=== PATIENT | male | born 1945 | race Caucasian/White ===

== ENCOUNTER 2018-05-07 11:10 | Inpatient (IN) | payer OTHER ==
[2018-05-07] VITALS (38 sets, daily range): BP systolic 87–138; BP diastolic 42–68
[~2018-05-07] VITALS: Ht 180.3 cm; Wt 70.5 kg
[2018-05-07 11:27] LABS: URINE BLOOD 3+ (Negative); URINE CLARITY CLOUDY; URINE COLOR YELLOW; URINE GLUCOSE-RANDOM* NEGATIVE (Negative); URINE KETONES TRACE (Negative); URINE LEUKOCYTES-REFLEX 2+ (Negative); URINE NITRITE-REFLEX POSITIVE (Negative); URINE PROTEIN (DIPSTICK) 2+ (Negative); URINE SPECIFIC GRAVITY 1.025 (1.005-1.035); URINE UROBILINOGEN 0.2 E.U./dl (0.2-1.0)
[2018-05-07 11:28] LABS: ICTOTEST (BILI CONFIRMATORY) Negative (Negative); URINE BILIRUBIN NEGATIVE (Negative)
[2018-05-07 11:28] LABS: ABSOLUTE NEUTROPHILS 4.9 thou/uL (1.4-8.2); BASOPHILS 0.3 % (0.0-2.0); EOSINOPHILS 0.8 % (0.0-3.0); HEMOGLOBIN 8.9 gm/dL (14.0-18.0); LYMPHOCYTES 24.4 % (24.0-44.0); MCHC 31.8 g/dL (28.0-37.0); MCV 91.1 fL (80.0-100.0); MONOCYTES 9.1 % (1.0-8.0); POLYS 65.4 % (36.0-66.0); RBC 3.08 mil/uL (4.50-6.00); RDW 22.2 % (10.5-14.5); WBC 7.5 thou/uL (4.0-11.0)
[2018-05-07 11:35] LABS: CALCIUM 7.8 mg/dL (8.5-10.1); CREATININE 2.2 mg/dL (0.7-1.3)
[2018-05-07] MEDS ORDERED: NOVOLOG100 UNIT/1 SUBQ (11:37)
[2018-05-07] MEDS ORDERED: TYLENOL325 MG PO (11:38)
[2018-05-07 11:39] LABS: INR 1.1; PROTIME 11.6 Seconds (9.3-11.4)
[2018-05-07] MEDS ORDERED: ALLOPURINOL 10100 M1 PO (11:39)
[2018-05-07] MEDS ORDERED: ASPIRIN81 M2 PO (11:42)
[2018-05-07] MEDS ORDERED: PLAVIX 75 MG TA75 M1 PO (11:42)
[2018-05-07] MEDS ORDERED: SENNA-DOCUSATE1 EAC1 PO (11:43)
[2018-05-07 11:44] LABS: POTASSIUM 2.9 mmol/L (3.5-5.1)
[2018-05-07 11:44] LABS: CASTS None Seen /LPF (None Seen); SQUAMOUS 0-3 Few /LPF (0-3); URINE RBC >20 Many /HPF (0-2); URINE WBC-REFLEX >25 Many /HPF (0-5); YEAST-REFLEX Present (None Seen)
[2018-05-07 11:45] LABS: ALBUMIN 1.8 g/dL (3.4-5.0); MAGNESIUM 1.6 mg/dL (1.8-2.4); TOTAL BILIRUBIN 0.4 mg/dL (<0.1-1.0); TOTAL PROTEIN 5.3 g/dL (6.4-8.2)
[2018-05-07 11:45] LABS: CRYSTALS None Seen /LPF (None Seen)
[2018-05-07] MEDS ORDERED: EPOGEN10000 UNIT SUBQ (11:45)
[2018-05-07] MEDS ORDERED: FOLIC ACID 1 MG1 MG PO (11:46)
[2018-05-07] MEDS ORDERED: HEPARIN 1,1000 UNIT/ SUBQ (11:46)
[2018-05-07 11:47] LABS: TROPONIN-I 5.06 ng/mL (<0.06)
[2018-05-07] MEDS ORDERED: LISINOPRIL5 MG PO (11:47)
[2018-05-07 11:48] LABS: APTT 41.1 Seconds (24.5-32.8)
[2018-05-07] MEDS ORDERED: MELATONIN3 MG PO (11:48)
[2018-05-07] MEDS ORDERED: REMERON15 MG PO (11:48)
[2018-05-07] MEDS ORDERED: RENAL CAPS SOFTG1 MG PO (11:49)
--- NOTE | 2018-05-07 11:49 | NUR ---
rt attempt for abg without sucess will call another rt to get abg
[2018-05-07] MEDS ORDERED: OXYCODONE HCL 55 MG PO (11:51)
[2018-05-07] MEDS ORDERED: ZANTAC 150MG T150 M1 PO (11:52)
[2018-05-07] MEDS ORDERED: PREDNISONE 5 MG5 M1 PO (11:52)
[2018-05-07] MEDS ORDERED: SODIUM BICARBO650 M3 PO (11:53)
[2018-05-07] MEDS ORDERED: TRAZODONE HCL100 MG PO (11:53)
[2018-05-07] MEDS ORDERED: TACROLIMUS0.5 MG PO (11:54)
--- NOTE | 2018-05-07 11:54 | NUR ---
RT HERE TO ATTEMPT ABG DRAW
[2018-05-07] MEDS ORDERED: LIDOCAINE PAIN1 EACH TOP (11:56)
[2018-05-07] MEDS ORDERED: CILOSTAZOL 100100 M1 PO (11:56)
[2018-05-07] MEDS ORDERED: PRAVACHOL40 MG PO (11:57)
[2018-05-07] MEDS ORDERED: LYRICA 50 MG50 MG PO (11:58)
--- NOTE | 2018-05-07 11:59 | NUR ---
RT WAS UNABLE TO GET ABG PROVIDER MADE AWARE
[2018-05-07] MEDS ORDERED: FLAGYL500 M1 PO (12:00)
[2018-05-07] MEDS ORDERED: SSD CREAM 1% 5050 GM TOP (12:03)
[2018-05-07] MEDS ORDERED: BETADINE30 ML TOP (12:05)
[2018-05-07 12:06] LABS: ANISOCYTOSIS 2+; PLATELET COUNT 218 thou/uL (150-400); PLATELET ESTIMATE NORMAL
[2018-05-07 12:07] LABS: OVALOCYTES 1+
[2018-05-07 16:45] LABS: BE(vivo) 0.1 mmol/L (-2 to +3); HCO3 24.8 mmol/L (22.0-26.0); PCO2 40.4 mmHg (35.0-45.0); PO2 75.2 mmHg (80.0-100.0); pH 7.406 (7.360-7.450); sO2 95.2 % (92.0-98.0)
[2018-05-07 17:36] LABS: POTASSIUM 3.3 mmol/L (3.5-5.1)
--- NOTE | 2018-05-07 17:58 | NUR ---
ADMITTED TO ICU FROM E.D. ON LEVO FOR BP SUPPORT. LOW GRADE FEVER NOTED. OTHER VITALS STABLE. HAS DENIED PAIN AND HAS BEEN DROWSY. ORIENTED TO PERSON AND PLACE. HARD OF HEARING, STATES HEARING AIDES LEFT WITH SPPOUSE. CONSULTS CALLED. ASSESSMENT AND HISTORY DOCUMENTED.
--- NOTE | 2018-05-07 23:30 | EKG ---
[place] [address] [facility] [place] [address] ELECTROCARDIOGRAM REPORT Name: HANNAH MCGARRY JR Room #: 244-P ADM IN M.R.#: [id number] Admission: 05/07/18 Attend Phys: Nash Paula MD Discharge: Date of : 47 Report #: [id number] THIS REPORT FOR: //name// [facility] ED Test Date: 2018-05-07 Test Time: 11:14:28 Pat Name: HANNAH MCGARRY Department: Room: 244 Gender: M Groundskeeper: WG : 1945 Requested By: Bhavik Pina Order Number: [id number] MD: Omid Manuel Measurements Intervals [place] Rate: 139 P: CO: QRS: 16 QRSD: 99 T: -88 QT: 295 QTc: 449 Interpretive Statements Atrial fibrillation Paired ventricular premature complexes Aberrant complex Repolarization abnormality, prob rate related Compared to ECG 10/25/2008 09:27:15 Ventricular premature complex(es) now present Aberrant conduction of supraventricular beat(s) now present Sinus bradycardia no longer present Poor R-wave progression no longer present ST (T wave) deviation no longer present Electronically Signed On 05-07-2018 23:30:12 LONG TERM by Omid Manuel [email or web address] <ELECTRONICALLY SIGNED> By: Omid Manuel MD 05/07/18 2330 1114 1114 Omid Manuel MD /EPI
--- NOTE | 2018-05-07 23:38 | EKG ---
[address] [place] [address] ELECTROCARDIOGRAM REPORT Name: HANNAH MCGARRY JR Room #: 244-P ADM IN M.R.#: [id number] Admission: 05/07/18 Attend Phys: Nash Paula MD Discharge: Date of : 47 Report #: [id number] THIS REPORT FOR: //name// [facility] Test Date: 2018-05-07 Test Time: 21:45:58 Pat Name: HANNAH MCGARRY Department: Room: 244 P Gender: M Rn Licensed Practical: BS : 1945 Requested By: Thaddeus Liang Order Number: [id number] MD: Omid Manuel Measurements Intervals [place] Rate: 97 P: 51 [place]: 161 QRS: 43 QRSD: 72 T: 112 QT: 393 QTc: 500 Interpretive Statements Sinus rhythm Nonspecific T abnormalities, lateral leads Borderline prolonged QT interval Compared to ECG 10/25/2008 09:27:15 T-wave abnormality now present Sinus bradycardia no longer present Poor R-wave progression no longer present ST (T wave) deviation no longer present Electronically Signed On 05-07-2018 23:38:08 DIRECT SUPPORT PROFESSIONAL by Omid Manuel [email or web address] <ELECTRONICALLY SIGNED> By: Omid Manuel MD 05/07/18 2338 2145 2145 Omid Manuel MD /EPI
[2018-05-08] VITALS (82 sets, daily range): BP systolic 78–139; BP diastolic 34–91
--- NOTE | 2018-05-08 02:30 | NUR ---
ASSUMED CARE OF PATIENT AROUND 1900. PATIENT DROWSY, ABLE TO WAKE UP AND ANSWER SOME QUESTIONS, FALLS BACK ASLEEP EASILY. PATIENT C/O PAIN IN R LEG AND L STUMP, OXYCODONE ADMINISTERED. PATIENT ABLE TO SLEEP THROUGH MOST OF NIGHT. WOUNDS NOTED AND REVIED WITH DR. MEDEL. SEE WOUND PHOTOS IN PROGRESS NOTES. ORDERS NOTED AND IMPLEMENTED. LEVO TITRATED TO KEEP MAP >65. ATTEMPTED TO TITRATE LEVO OFF SLOWLY, PRESSURE DECREASED TO 80s, LEVO INCREASED TO 16. ATTEMPTING TO TITRATE DOWN AGAIN. IJ SITE OOZING, STERILE DRESSING CHANGED X2 SO FAR. ATTEMPTED SOFT PRESSURE TO STOP OOZING. PATIENT IS PROGRESSING TOWARD GOALS, WILL CONTINUE TO MONITOR.
[2018-05-08 05:52] LABS: HEMOGLOBIN 8.4 gm/dL (14.0-18.0); MCH 28.3 pg (26.0-34.0); MCV 91.4 fL (80.0-100.0); RBC 2.95 mil/uL (4.50-6.00); RDW 22.5 % (10.5-14.5); WBC 5.7 thou/uL (4.0-11.0)
[2018-05-08 06:15] LABS: CALCIUM 7.1 mg/dL (8.5-10.1); CREATININE 2.5 mg/dL (0.7-1.3); MAGNESIUM 1.9 mg/dL (1.8-2.4); POTASSIUM 3.7 mmol/L (3.5-5.1)
[2018-05-08 06:18] LABS: TROPONIN-I 5.72 ng/mL (<0.06)
--- NOTE | 2018-05-08 08:02 | EKG ---
[address] [address] ELECTROCARDIOGRAM REPORT Name: HANNAH MCGARRY JR Room #: 244-P ADM IN M.R.#: [id number] Admission: 05/07/18 Attend Phys: Nash Paula MD Discharge: Date of : 47 Report #: [id number] THIS REPORT FOR: //name// [facility] Test Date: 2018-05-08 Test Time: 06:12:20 Pat Name: HANNAH MCBRIDEMALCOLM Department: Room: 244 P Gender: M Hand Striper: SHIRLEY : 1945 Requested By: Marta Funes Order Number: [id number] MD: Omid Manuel Measurements Intervals [place] Rate: 93 P: 40 ME: 168 QRS: 50 QRSD: 73 T: 116 QT: 424 QTc: 528 Interpretive Statements Sinus rhythm Low voltage, precordial leads Probable anteroseptal infarct, old Nonspecific T abnormalities, lateral leads Prolonged QT interval Compared to ECG 05/07/2018 21:45:58 Low QRS voltage now present Myocardial infarct finding now present T-wave abnormality still present Electronically Signed On 05-08-2018 8:02:35 RN LACTATION CONSULTANT by Omid Manuel [email or web address] <ELECTRONICALLY SIGNED> By: Omid Manuel MD 05/08/18801 1 1 Omid Manuel MD /EPI
--- NOTE | 2018-05-08 11:22 | HC ---
[facility] [place] [address] CONSULTATION Name: HANNAH MCGARRY JR Room #: 244-P ADM IN M.R.#: [id number] Admission: 05/07/18 Attend Phys: Nash Paula MD Discharge: Date of : 47 Report #: [id number] THIS REPORT FOR: //name// CC: FAM unknown Nash Paula DATE OF SERVICE: 05/07/2018 REASON FOR CONSULTATION: Evaluate septic shock. HISTORY OF PRESENT ILLNESS: The patient was a 72-year-old who presents with fever and cough. The patient was fairly lethargic and a poor historian. Most of his history was gleaned from discussion with nursing staff as well as review of his transfer records and current hospital records. He has underlying history of coronary artery disease, peripheral vascular disease and diabetes. He has end-stage renal disease. He failed renal transplant, still on tacrolimus and prednisone immunosuppression. He has significant peripheral vascular disease with nonhealing wounds involving his left hand, right foot and previously underwent left BKA at the [facility] for gangrene of his toe. Further complications after his surgery, which appears to be within the last month, he developed C. difficile colitis, treated with antibiotic therapy and now on metronidazole. The patient reports no diarrhea. No nausea or vomiting. He has had nonproductive cough. No headache. No chest pain. When he presented to the Emergency Room, he had a fever of 101 degrees and was in atrial fibrillation with rapid ventricular response and hypotensive with blood pressure in the 70s systolic. He has an indwelling Aguilar catheter that he came with. REVIEW OF SYSTEMS: A 10 point review of systems is otherwise negative. ALLERGIES: CODEINE, ATORVASTATIN, GABAPENTIN AND SIMVASTATIN. MEDICATIONS: As noted on his MAR including metronidazole, tacrolimus and 5 mg of prednisone a day. He was given vancomycin, Zosyn and micafungin in the Emergency Room. He is also on Levophed drip. PAST MEDICAL HISTORY: Diabetes, hypertension, ischemic heart disease, coronary artery bypass grafting, end-stage renal disease, gout, osteomyelitis of his left foot, status post BKA, peripheral vascular disease, right chest tunneled dialysis catheter placement and failed renal transplant. FAMILY HISTORY: Noncontributory. SOCIAL HISTORY: Nonsmoker and no significant alcohol intake. REVIEW OF SYSTEMS: As noted above. [address] [address] CONSULTATION Name: HANNAH MCGARRY Room #: 244-P [facility] IN .R.#: [id number] Admission: 05/07/18 Attend Phys: Nash Paula MD Discharge: Date of : 47 Report #: [id number] PHYSICAL EXAMINATION: VITAL SIGNS: Currently afebrile, pulse 91, blood pressure 112/55 on 6 mcg of Levophed. He was on 3 liters of oxygen per nasal cannula. GENERAL: He was awake although weak and unable to give a good history. EYES: Nonicteric. MOUTH: Without mucositis. NECK: Supple with no thyromegaly or mass. He has a left IJ catheter in place with oozing from the exit site. Right chest tunneled dialysis catheter exit site was unremarkable. Tunnel was nontender. SKIN: With multiple eschars to his distal digits including left second finger and left fifth distal finger along with right foot involving his heel and medial distal foot and first toe. No other rashes or decubiti. No palpable adenopathy. LUNGS: He had frequent nonproductive cough during my evaluation. Lungs had crackles in the bases bilaterally. No consolidation. HEART: Regular, without murmur, gallop or rub. ABDOMEN: Soft and nontender. He did have several areas of ecchymosis from his previous anticoagulation injections. GENITALIA: External genitalia unremarkable with no mass or lesion with indwelling Aguilar catheter. 1+ peripheral edema. RECTAL: Not performed. NEUROLOGIC: Cranial nerves intact. EXTREMITIES: He was able to move his upper and lower extremities. His left BKA had eschar at the incision site with no purulent drainage. He also has a shallow ulcer over the left knee. LABORATORY STUDIES: Troponin 10.3. ABG on 4 liters showed a pO2 of 75, pCO2 of 40, pH 7.4. Lactate 0.9 and ____. Influenza antigen is negative. Procalcitonin 1. Hemoglobin 8.9. WBC 7.5 and platelet count 218,000. Differential is unremarkable. BNP 27,600. INR 1.1. Sodium 136, potassium 2.9, bicarbonate 29, creatinine 2.2. Bilirubin 0.3, alkaline phosphatase 445 and ALT 17. Urinalysis, pyuria and bacteriuria. Chest x-ray, edema with left basilar consolidation and left effusion. Electrocardiogram showed atrial fibrillation with aVR complex. Blood cultures and urine culture are pending. IMPRESSION: Shock along with fever, suspecting infectious etiology, but with ischemic changes, cannot yet rule out cardiac component to his hypoperfusion. Source of infection would include central venous catheter versus pneumonia versus urinary tract infection. The patient is immunosuppressed on medications for his failed renal transplant. Although he has a history of C. difficile colitis, we have not had any episode of diarrhea since hospitalization. He has extensive ischemic changes, but they all seem to be dry gangrene, doubt cause of this presentation. Given the comorbidities including his cardiac injury with troponin up to 10, respiratory compromise recent surgery, end-stage renal disease and immunosuppression for renal transplant increases his mortality risk. [facility] [address] [place] [address] CONSULTATION Name: HANNAH MCGARRY JR Room #: 244-P ADM IN M.R.#: [id number] Admission: 05/07/18 Attend Phys: Nash Paula MD Discharge: Date of : 47 Report #: [id number] RECOMMENDATIONS: I agree with ICU support with vasopressors as needed. I have discussed with Cardiovascular medicine who will do further evaluation of his ischemia. We will continue with broad antibiotic coverage. Follow serial chest x-ray. Screen for influenza. Obtain sputum sample if possible. I have discussed with nursing staff regarding approach to his care. <ELECTRONICALLY SIGNED> By: Bhavik Parkinson MD 05/08/18 1122 2143 0038 Bhavik Parkinson MD /nt
--- NOTE | 2018-05-08 12:36 | 2DMMODE ---
[facility] [address] [place] [address] 2 D/M-MODE ECHOCARDIOGRAM Name: HANNAH MCGARRY Room #: 244-P [facility] IN .R.#: [id number] Admission: 05/07/18 Attend Phys: Nash Paula, Discharge: Date of : 47 Date of Service: 05/08/18 1236 Report #: [id number] THIS REPORT FOR: //name// APPROVED REPORT Study performed: 05/08/2018 08:18:08 EXAM: Comprehensive 2D, Doppler, and color-flow Echocardiogram Patient Location: Bedside Room #: 244 Status: routine BSA: 1.89 HR: 90 bpm BP: 121/67 mmHg Rhythm: Atrial Fibrillation Other Information Study Quality: Good Risk Factors: Cardiac Risk Factors: HTN, Hyperlipidemia, DM Indications Congestive Heart Failure CAD CABG x4 (2000) ESRD 2D Dimensions IVSd: 12.14 (7-11mm) LVOT Diam: 21.00 (18-24mm) LVDd: 57.45 mm PWd: 10.72 (7-11mm) Ascending Ao: 32.56 (22-36mm) LVDs: 52.29 (25-40mm) Aortic Root: 29.78 mm LV Single Plane 4CH: 21.77 % LV Single Plane 2CH: 26.32 % Biplane EF: 21.8 % Volumes Left Atrial Volume (Systole) Single Plane 4CH: 85.37 mL Single Plane 2CH: 82.41 mL LA ESV Index: 47.00 mL/m2 Aortic Valve [facility] [address] [place] [address] 2 D/M-MODE ECHOCARDIOGRAM Name: HANNAH MCGARRY JR Room #: 244-P [facility] IN .R.#: [id number] Admission: 05/07/18 Attend Phys: Nash Paula, Discharge: Date of : 47 Date of Service: 05/08/18 1236 Report #: [id number] AoV Peak Guicho.: 1.55 m/s AO Peak Gr.: 9.63 mmHg LVOT Max P.93 mmHg LVOT Max V: 0.69 m/s INGE Vmax: 1.48 cm2 Mitral Valve E/A Ratio: 3.5 MV Decel. Time: 117.72 ms MV E Max Guicho.: 1.50 m/s MV A Guicho.: 0.43 m/s MV PHT: 34.14 ms IVRT: 51.90 ms TDI E/Lateral E': 21.43 E/Medial E': 25.00 Medial E' Guicho.: 0.06 m/s Lateral E' Guicho.: 0.07 m/s Pulmonary Valve PV Peak Guicho.: 0.92 m/s PV Peak Gr.: 3.37 mmHg KS End Vmax: 1.63 m/s Pulmonary Vein P Vein S: 0.30 m/s P Vein A: 0.13 m/s P Vein D: 0.55 m/s P Vein A Dur.: 83.0 msec P Vein S/D Ratio: 0.55 Tricuspid Valve TR Peak Guicho.: 2.82 m/s RAP Estimate: 14.00 mmHg TR Peak Gr.: 31.87 mmHg PA Pressure: 46.00 mmHg Left Ventricle Left ventricle is borderline dilated. Anterolateral akinesis. Mid-inferior and posterior severe hypokinesis. Septum is hypokinetic. Mild concentric left ventricular hypertrophy. Left ventricular systolic function is severely decreased. LVEF is 20-25%. Grade IV - fixed restrictive diastolic dysfunction. Right Ventricle Right ventricle is dilated. Right ventricular systolic function is severely reduced. Atria Left atrium is moderately dilated. Right atrium is dilated. [facility] [address] [place] [address] 2 D/M-MODE ECHOCARDIOGRAM Name: HANNAH MCGARRY Room #: 244-P [facility] IN ..#: [id number] Admission: 05/07/18 Attend Phys: Nash Paula, Discharge: Date of : 47 Date of Service: 05/08/18 1236 Report #: [id number] Aortic Valve The Aortic valve is sclerotic. Trace aortic regurgitation. Mitral Valve There is mitral annular calcification. Moderate to severe mitral regurgitation. Tricuspid Valve Moderate to severe tricuspid regurgitation. Pulmonary artery pressure is 46 mmHg. Pulmonic Valve Mild pulmonic regurgitation. Great Vessels IVC is dilated and collapses <50% with inspiration. Pericardium no effusion A pleural effusion is present. <Conclusion> Left ventricle is borderline dilated. Anterolateral akinesis. Mid-inferior and posterior severe hypokinesis. Septum is hypokinetic. Mild concentric left ventricular hypertrophy. LVEF is 20-25%. Grade IV - fixed restrictive diastolic dysfunction. Right ventricle is dilated. Right ventricular systolic function is severely reduced. Left atrium is moderately dilated. Right atrium is dilated. The Aortic valve is sclerotic. Trace aortic regurgitation. There is mitral annular calcification. Moderate to severe mitral regurgitation. Moderate to severe tricuspid regurgitation. Pulmonary artery pressure is 46 mmHg. no effusion A pleural effusion is present. <ELECTRONICALLY SIGNED> By: Thaddeus Liang MD, FACC 05/08/18 1236 1236 1236 Thaddeus Liang MD, FACC /INF
--- NOTE | 2018-05-08 15:14 | NUR ---
WOUND CONSULT: DR. EUCEDA AND MYSELF ATTEMPTED TO SEE PT. TODAY. PT. WAS GONE TO PUBLIC SERVICE DIRECTOR. SPOKE TO DR. NICHOLSON AND STAFF NURSE REGARDING WOUNDS. RECOMMENDATIONS WERE BASED ON THIS. WILL ATTEMPTED TO SEE PT. AGAIN AT LATER DATE.
--- NOTE | 2018-05-08 15:54 | NUR ---
Patient at cardiac cath lab radiology technologist for multiple proceedures. Will continue to monitor after returns. Vital signs and assessments as documented.
[2018-05-08 17:21] LABS: BE(vivo) -1.8 mmol/L (-2 to +3); HCO3 22.2 mmol/L (22.0-26.0); PCO2 34.9 mmHg (35.0-45.0); PO2 148.8 mmHg (80.0-100.0); pH 7.422 (7.360-7.450)
--- NOTE | 2018-05-08 17:32 | NUR ---
Patient left the unit at 1345 to proceedure room. Will stated return time.
--- NOTE | 2018-05-08 19:45 | NUR ---
Patient returned from labor arbitrator hearing office. Vital signs as documented. Left groin site soft without hematoma, no bleeding noted.
[2018-05-09] VITALS (31 sets, daily range): BP systolic 96–150; BP diastolic 48–85
[2018-05-09 05:40] LABS: HEMATOCRIT 26.6 % (42.0-52.0); HEMOGLOBIN 8.4 gm/dL (14.0-18.0); MCH 28.9 pg (26.0-34.0); MCHC 31.6 g/dL (28.0-37.0); MCV 91.4 fL (80.0-100.0); RBC 2.91 mil/uL (4.50-6.00); RDW 22.1 % (10.5-14.5); WBC 6.7 thou/uL (4.0-11.0)
[2018-05-09 05:52] LABS: CALCIUM 7.3 mg/dL (8.5-10.1); CREATININE 1.9 mg/dL (0.7-1.3); MAGNESIUM 1.9 mg/dL (1.8-2.4); POTASSIUM 3.2 mmol/L (3.5-5.1)
--- NOTE | 2018-05-09 07:51 | NUR ---
ASSUMED CARE OF PT AT 1900. PT HAD RECENTLY RETURNED FROM CATH, IN WHICH THEY PLACED THREE STENTS. LEFT GROIN SITE DRESSING INTACT WITH SOME SEROSANGUINOUS DRAINAGE, NO HEMATOMA. RIGHT PEDAL PULSE PAPABLE, BUT WEAK. LEFT POPLITEAL PULSE PAPABLE. LEVO GTT OFF THE ENTIRE NIGHT. ASSESSMENTS AND VITALS DOCUMENTED. WILL CONTINUE TO MONITOR.
--- NOTE | 2018-05-09 17:27 | NUR ---
RECEIVED FROM ICU. VSS REMAINS NSR WITH PVC'S, BP 101-110/50'S, LUNGS DIMINISHED O2 SAT 2K IS 91%, LEONARD INTACT DRAINING QS. LBKA, PRAFO BOOT ON R LEG, NO C/O PAIN ON CCU. WILL CONTINUE TO MONITER AND CARE FOR PT PER PLAN OF CARE
--- NOTE | 2018-05-09 17:36 | NUR ---
RECEIVED FROM ICU TOAY. VSS REMAINS NSR WITH PVC'S. BP 100-110/60, LUNGS DIMINISHED AND CLEAR, O2 SAT 2L IS 91%, LEONARD INTACT, NO UO THIS SHIFT. NO C/O PAIN ON CCU FROM R FOOT, PROFO BOOT INTACT..[place] WOUND DOCUMENTTION FOR WOUND CARE. WILL CONTINUE TO MONITER AND CARE FOR PT PER PLAN OF CARE
--- NOTE | 2018-05-09 19:50 | NUR ---
PT AND AND ORIENTED X2-3 THIS AM. VSS. ORDER TO TRANSFER TO CCU. REPORT CALLED TO [facility], ISMAEL. PT'S FAMILY INFORMED OF TRANSFER.
[2018-05-10 04:54] LABS: HEMATOCRIT 25.5 % (42.0-52.0); HEMOGLOBIN 8.2 gm/dL (14.0-18.0); MCHC 32.1 g/dL (28.0-37.0); MCV 90.3 fL (80.0-100.0); RBC 2.82 mil/uL (4.50-6.00); RDW 21.6 % (10.5-14.5); WBC 5.8 thou/uL (4.0-11.0)
[2018-05-10 05:04] LABS: CALCIUM 7.3 mg/dL (8.5-10.1); CREATININE 2.8 mg/dL (0.7-1.3); MAGNESIUM 1.9 mg/dL (1.8-2.4)
[2018-05-10 05:08] LABS: POTASSIUM 2.9 mmol/L (3.5-5.1)
[2018-05-10 05:27] VITALS: BP 121/53
--- NOTE | 2018-05-10 08:01 | NUR ---
ASSUMED PT CARE AT 1900. VSS. PT A&OX4. ASSESSMENTS AND MEDS GIVEN ARE DOCUMENTED, PT HAD 3 SOFT BMs DURING THIS SHIFT. L GROIN SITE HAD SOME FLUID OOZING OUT OF IT, SO PRESSURE DRESSING WAS APPLIED. DRESSING CHANGE TO SACRAL WOUND DONE. PT HAD A CRITICAL POTASSIUM OF 2.9 THIS AM, POTASSIUM WAS REPLACED, TO BE REDRAWN AT 1000AM. PT RESTED WELL ALL NIGHT. NO COMPLAINTS OF DISTRESS. WILL CONTINUE TO MONITOR PER POC.
[2018-05-10 08:10] VITALS: BP 100/53
[2018-05-10 11:57] VITALS: BP 114/61
--- NOTE | 2018-05-10 12:40 | HC ---
[facility] [place] [address] [place] [address] CONSULTATION Name: HANNAH MCGARRY JR Room #: 214-P ADM IN M.R.#: [id number] Admission: 05/07/18 Attend Phys: Nash Paula MD Discharge: Date of : 47 Report #: [id number] THIS REPORT FOR: //name// CC: FAM unknown Nash Paula DATE OF SERVICE: 05/09/2018 REASON FOR CONSULTATION: Severe peripheral vascular disease of bilateral lower extremity, status post left below-knee amputation, gangrene of right toe with lower extremity revascularization yesterday, sacral pressure sore. HISTORY OF PRESENT ILLNESS: The patient with a history of end-stage renal disease with failed renal transplant, who was admitted through the Emergency Room at [facility] on 05/07/2018 with septic shock. The patient has been stabilized. The patient has a history of underlying coronary artery disease and severe peripheral vascular disease with diabetes mellitus type 2 in the setting of end-stage renal disease with failed renal transplant. He is still on tacrolimus and prednisone immunosuppression. The patient recently underwent left below-knee amputation for gangrene of the left foot. This was done at the [facility]. He has a healing below-knee amputation site. The patient also presented with rest pain of the right foot with dry gangrene of the toes. He, yesterday, underwent coronary artery stenting as well as lower extremity angiography by Dr. Connolly with placement of right and left common iliac artery stents with right peroneal artery atherectomy and angioplasty with secondary thrombectomy of the peroneal artery. The patient was noted to have weak pulse of the right foot and rest pain in the right lower extremity. Of note, during the patient's previous hospitalization, he was diagnosed with Clostridium difficile colitis. Wound care is consulted for gangrenous change of the right foot, healing below-knee amputation on the left and sacral pressure sore. ALLERGIES: CODEINE, ATORVASTATIN, GABAPENTIN, AND SIMVASTATIN. REVIEW OF SYSTEMS: Rest pain in the right foot. MEDICATIONS: See the MAR, includes vancomycin and Zosyn. PAST MEDICAL HISTORY: Diabetes mellitus type 2, hypertension, end-stage renal disease with failed renal transplant, ischemic coronary artery disease status post coronary bypass grafting, history of gangrene and osteomyelitis of left foot status post recent below-knee amputation, severe peripheral vascular disease of both lower extremities, history of failed renal transplant. FAMILY HISTORY: Noncontributory. [address] [address] CONSULTATION Name: HANNAH MCGARRY JR Room #: 214-P [facility] IN M.R.#: [id number] Admission: 05/07/18 Attend Phys: Nash Paula MD Discharge: Date of : 47 Report #: [id number] SOCIAL HISTORY: No significant tobacco or alcohol. PHYSICAL EXAMINATION: GENERAL: Shows a chronically ill-appearing gentleman who is alert, pleasant, conversant, and cooperative. HEENT: Mucous membranes are moist. ABDOMEN: Soft. EXTREMITIES: Shows a healing left below-knee amputation stump with intact nylon suture line. There is crusted eschar at the incision line with minimal wound separation. There is no cellulitis and no apparent drainage and flaps appear to be completely viable. Eschar over the suture line may conceal some minor skin separation, but stump appears generally stable. Examination of the right lower extremity shows a weak palpable dorsalis pedis pulse. There is a stable dry gangrene of the distal 1 cm of the great toe and distal 0.5 cm of the right second toe. There is a neuropathic unstageable dry black pressure ulcer of the right lateral heel, which is somewhat tender to the touch without cellulitis. Examination of the patient's back shows a small healing stage 3 pressure ulcer of the right sacrum measuring 1 x 1 cm and a small blistered area above this. IMPRESSION: 1. End-stage renal disease with failed renal transplant. 2. History of recent Clostridium difficile colitis. 3. Coronary artery disease, status post coronary bypass grafting and coronary stenting yesterday. 4. Severe peripheral vascular disease of lower extremities with gangrene of left foot, requiring recent below-knee amputation. 5. Healing left below-knee amputation stump with minor wound separation. 6. Rest pain and stable dry gangrene of the right first, second toe and heel with weak dorsalis pedis pulse. 7. Small sacral stage 3 pressure ulcer. PLAN: Total offloading with low-air loss mattress, sacral Mepilex to the small stage 3 sacrum. Betadine paint to the areas of dry gangrene of the right foot. Simple observation of the left below-knee amputation stump. Wound care team will follow. <ELECTRONICALLY SIGNED> By: Edgard Diaz MD 05/10/18 1240 0651 [id number] Edgard Diaz MD /nt
--- NOTE | 2018-05-10 14:38 | NUR ---
Pt WENT TO IR ON 05/08/18 FOR STENT PLACEMENTS AND SECONDARY THROMBECTOMY. WILL NEED NEW PT ORDERS ONCE Pt IS APPROPRIATE FOR THERAPY.
[2018-05-10 16:00] VITALS: BP 0113/56
[2018-05-10 19:05] VITALS: BP 126/66
--- NOTE | 2018-05-10 20:05 | NUR ---
ASSUMED PATIENT CARE THIS AM. PATIENT LYING IN BED, A&O. NC @ 2L. LEONARD CATHETER PATENT AND SECURE. PATIENT CALL LIGHT WITHIN REACH. FALL RISK. LEFT BKA ELEVATED ON PILLOW. NO COMPLAINTS STATED. TOLERATING DIET.
[2018-05-11 05:10] VITALS: BP 104/58
[2018-05-11 05:56] LABS: HEMATOCRIT 27.2 % (42.0-52.0); HEMOGLOBIN 8.6 gm/dL (14.0-18.0); MCH 28.9 pg (26.0-34.0); MCHC 31.7 g/dL (28.0-37.0); MCV 91.1 fL (80.0-100.0); RBC 2.99 mil/uL (4.50-6.00); RDW 21.8 % (10.5-14.5); WBC 5.7 thou/uL (4.0-11.0)
[2018-05-11 06:03] LABS: CALCIUM 7.2 mg/dL (8.5-10.1); CREATININE 3.6 mg/dL (0.7-1.3); MAGNESIUM 1.9 mg/dL (1.8-2.4); POTASSIUM 3.7 mmol/L (3.5-5.1)
--- NOTE | 2018-05-11 06:28 | NUR ---
ASSUMED PT CARE WITH NO SIGN OF DISTRESS NOTED, BEDSIDE REPORT COMPLETED. PT IS STABLE, BLOOD SUGAR CHECKED, BLOOD SUGAR CHECKED, SCHEDULED MED ADMINISTERED TO PT. PT IS NPO AFTER MIDNIGHT FOR A PROCEDURE. PT VERBALIZES UNDERSTANDING. NO NIGHT OF DISTRESS NOTED IN PT. DENIES ANY NEED. VITAL SIGNS STABLE.
[2018-05-11 07:21] VITALS: BP 96/52
--- NOTE | 2018-05-11 08:43 | NUR ---
PT UNDERWENT THROMBECTOMY; NEED NEW O.T. ORDERS IF APPROPRIATE DUE TO CHANGE IN STATUS.
[2018-05-11 13:08] LABS: HEMATOCRIT 24.5 % (42.0-52.0); HEMOGLOBIN 7.8 gm/dL (14.0-18.0); MCH 29.1 pg (26.0-34.0); MCV 90.8 fL (80.0-100.0); RBC 2.69 mil/uL (4.50-6.00); RDW 21.5 % (10.5-14.5); WBC 6.7 thou/uL (4.0-11.0)
[2018-05-11 13:26] LABS: APTT 38.4 Seconds (24.5-32.8); FIBRINOGEN 216.8 mg/dL (210-360); INR 1.2
[2018-05-11 15:15] LABS: HEMATOCRIT 21.7 % (42.0-52.0); HEMOGLOBIN 6.9 gm/dL (14.0-18.0); MCH 28.9 pg (26.0-34.0); MCHC 31.9 g/dL (28.0-37.0); MCV 90.6 fL (80.0-100.0); RBC 2.39 mil/uL (4.50-6.00); RDW 21.6 % (10.5-14.5)
[2018-05-11 15:31] LABS: APTT 38.3 Seconds (24.5-32.8); INR 1.2; PROTIME 12.7 Seconds (9.3-11.4)
--- NOTE | 2018-05-11 15:32 | HC ---
[facility] [place] [address] CONSULTATION Name: HANNAH MCGARRY JR Room #: 150-1 ADM IN M.R.#: [id number] Admission: 05/07/18 Attend Phys: Nash Paula MD Discharge: Date of : 47 Report #: [id number] THIS REPORT FOR: //name// CC: FAM unknown Nash Paula DATE OF SERVICE: 05/10/2018 We were asked to see the patient by Dr. Connolly, Dr. Liang and Dr. Leo. HISTORY OF PRESENT ILLNESS: The patient is a 72-year-old with lower extremity arterial occlusive disease. The patient was admitted on 05/07/2018 with a diagnosis of septic shock. The patient has a history of diabetes, hypertension, coronary artery disease with a history of CABG in the past and a recent left below knee amputation. The patient also has end-stage renal disease, on dialysis. The patient sought care for gangrenous toe at the [facility] in [place] and eventually had a avrcn-lmj-raac amputation at that institution. The patient states that his course was complicated by an infection of C. difficile. The patient was later discharged to care home facility and on the day of admission to this hospital started developing fevers. The patient has been treated for this since admission. We also note the patient has had diagnostic coronary and peripheral angiography with stent placement in the common iliacs bilaterally and in the right superficial femoral to open a total occlusion. Unfortunately, there was a high grade lesion in the right common femoral artery and I have been asked to deal with that surgically. MEDICAL PROBLEMS: Include anasarca, atrial fibrillation with rapid ventricular response, heart failure, elevated troponin, end-stage dialysis, hypoalbuminemia, hypokalemia, hypomagnesemia, hypotension, pneumonia, sepsis and urinary tract infection. ALLERGIES: CODEINE CAUSES RASH, ATORVASTATIN AND GABAPENTIN MAKE THE PATIENT SHAKY AND SIMVASTATIN. MEDICATIONS: Include insulin, acetaminophen, allopurinol, aspirin, Plavix, Epogen, folate, Lovenox, lisinopril, melatonin, Remeron, prednisone, ranitidine, sodium bicarbonate, trazodone, tacrolimus, lidocaine, cilostazol, pravastatin, pregabalin, Flagyl and topical sulfasalazine and Betadine. PAST MEDICAL HISTORY: Includes diabetes mellitus, hypertension, dialysis 3 days a week, left jepjp-mhh-svxc amputation recently, idiopathic gout, osteomyelitis, quadruple bypass in the past. FAMILY HISTORY: There is no history of peripheral or cardiac disease. SOCIAL HISTORY: Tobacco use, the patient [place] [address] CONSULTATION Name: HANNAH MCGARRY Room #: 150-1 ADM IN ..#: [id number] Admission: 05/07/18 Attend Phys: Nash Paula MD Discharge: Date of : 47 Report #: [id number] when he was in the service in [facility] in the mid 60s. REVIEW OF SYSTEMS: I have nothing to add to the review of systems done at admission other than the fact that there is a gangrenous toes of the right foot. PHYSICAL EXAMINATION: GENERAL: The patient is pleasant fellow. He is oriented and appropriate, appears chronically ill and somewhat sarcopenic. HEENT: No scleral icterus, no arcus, normocephalic. No obvious oral or nasal injection. NECK: No cervical mass or bruit. CHEST: Clear at the apex, shallow respirations. HEART: Irregular rhythm. No murmurs audible. ABDOMEN: Soft, no mass, no tenderness. NEUROLOGIC: No motor or sensory weakness. MUSCULOSKELETAL: We note the left evnli-ivj-jvdz amputation and the gangrenous toes of the right foot. PSYCHIATRIC: The patient answers questions appropriately and although somber, does not appear to be inordinately depressed. ASSESSMENT: It appears that the patient has had a good response to his treatment for infection. However, the right lower extremity progress will be limited by the significant lesion in the right common femoral artery. Although the patient is on Plavix, I think we can safely explore the groin and improve the blood flow with a right femoral endarterectomy. Risks and details of surgery were discussed with the patient. These include but are not limited to bleeding, infection, anesthesia risks, and of course failure of the operation. Options and alternatives were reviewed. The patient understands all of this and he wishes to proceed. I have tried to arrange surgery for tomorrow afternoon, 05/11/2018. Thank you for the consult. <ELECTRONICALLY SIGNED> By: Tin Meza MD 05/11/18 1532 [id number] [id number] Tin Meza MD /nt
[2018-05-11 17:10] LABS: BE(vivo) -4.9 mmol/L (-2 to +3); HCO3 19.3 mmol/L (22.0-26.0); PCO2 32.6 mmHg (35.0-45.0); PO2 143.2 mmHg (80.0-100.0); pH 7.391 (7.360-7.450); sO2 98.8 % (92.0-98.0)
[2018-05-11 17:44] LABS: HEMATOCRIT 26.7 % (42.0-52.0); HEMOGLOBIN 8.6 gm/dL (14.0-18.0)
--- NOTE | 2018-05-11 23:52 | NUR ---
ASSUMED CARE OF PT AT 1900. PT S/P FEMORAL ENDARTERECTOMY AND STARTED ON HD. PT HYPOTENSIVE ON HD LOW 70/30. LEVOPHED GTT TITRATED TO KEEP MAP > 60. DR STEWART CONTACTED AND ORDERS FOR ALBUMIN GIVEN. PT STABILIZED AND TOLERATED HD WITHOUT FLUID REMOVAL PER DR STEWART. DR STEWART AGAIN UPDATED WITH PATIENT STATUS AT 2019. BP IMPROVED DURING DIALYSIS AND ABLE TO TITRATE LEVO GTT DOWN. DR ZARCO ASSESSED PATIENT AT BEDSIDE AND WAS UNABLE TO DOPPLER PULSE ON RLE (POPLITEAL PULSE). NO ACTIVE BLEEDING NOTED ON R GROIN SITE DRESSING. LATISHA DRAIN IN PLACE WITH SMALL AMOUNT OF SANGUINEOUS DRAINAGE. WILL CONTINUE TO MONITOR PATIENT.
[2018-05-12 01:47] LABS: HEMATOCRIT 21.8 % (42.0-52.0); MCH 28.4 pg (26.0-34.0); MCV 88.6 fL (80.0-100.0); RBC 2.47 mil/uL (4.50-6.00); WBC 11.1 thou/uL (4.0-11.0)
[2018-05-12 06:13] LABS: CALCIUM 6.9 mg/dL (8.5-10.1); POTASSIUM 3.5 mmol/L (3.5-5.1)
[2018-05-12 06:19] LABS: CREATININE 2.1 mg/dL (0.7-1.3)
[2018-05-12 06:26] LABS: HEMOGLOBIN 7.4 gm/dL (14.0-18.0)
[2018-05-12 07:11] LABS: ADENOVIRUS Negative (Negative); INFLUENZA A Negative (Negative); INFLUENZA B Negative (Negative); PARAINFLUENZA 1 Negative (Negative); PARAINFLUENZA 2 Negative (Negative); PARAINFLUENZA 3 Negative (Negative); RHINOVIRUS Negative (Negative); RSV A Negative (Negative); RSV B Negative (Negative)
--- NOTE | 2018-05-12 10:26 | NUR ---
patient rec endarterectomy procedure yesterday, he has recent BKA and ESRD on dialysis. Patient admits from [facility] skilled unit. Per family has been there approx a week. [facility] . Patient has supportive and dtr at bedside. Casemgt following plan to cont to updated [facility] with planned return. Therapy evals to resume once stable.
--- NOTE | 2018-05-12 13:41 | NUR ---
PT. IS A RESIDENT AT [facility] FAXED CLINICAL UPDATE TO FACILITY AND SPOKE WITH YOLANDA IN ADM. AND SHE RECEIVED UPDATE. DCP TO FOLLOW.
[2018-05-12 13:54] LABS: HEMATOCRIT 20.3 % (42.0-52.0)
[2018-05-12 13:55] LABS: HEMOGLOBIN 6.7 gm/dL (14.0-18.0)
--- NOTE | 2018-05-12 14:21 | NUR ---
WOUND FOLLOW UP: PT. WAS SEEN TODAY BY DR. EUCEDA AND MYSELF. PT. WOUNDS ARE STABLE AT THIS TIME. RECOMMENDATIONS: CONTINUE WITH CURRENT PLAN OF CARE. PT. AND STAFF NURSE WERE INSTRUCTED ON PLAN OF CARE.
[2018-05-12 15:10] LABS: BE(vivo) 0.4 mmol/L (-2 to +3); HCO3 23.5 mmol/L (22.0-26.0); PCO2 31.3 mmHg (35.0-45.0); PO2 163.6 mmHg (80.0-100.0); pH 7.494 (7.360-7.450); sO2 99.2 % (92.0-98.0)
[2018-05-12 16:38] VITALS: BP 116/37; BP 116/42
--- NOTE | 2018-05-12 16:49 | O ---
[facility] [place] [address] OPERATIVE REPORT Name: CARYNHANNAH Denny Room #: 247-P ADM IN M.R.#: [id number] Admission: 05/07/18 Attend Phys: Nash Paula MD Discharge: Date of : 47 Report #: [id number] THIS REPORT FOR: //name// CC: FAM unknown Nash Paula DATE OF SERVICE: 05/11/2018 PREOPERATIVE DIAGNOSIS: Right femoral artery stenosis. POSTOPERATIVE DIAGNOSIS: Right femoral artery stenosis. OPERATION: Right femoral endarterectomy with patch graft. SURGEON: Tin Meza MD. ANESTHESIA: General. INDICATIONS: The patient is a 72-year-old with important lower extremity arterial occlusive disease. The patient had a left below the knee amputation at the [facility] several weeks ago. The patient was admitted to this institution with sepsis and also important right lower extremity arterial occlusive disease. The sepsis seems to have been controlled, but the patient had arteriography that shows a severe right common femoral stenosis, iliac stenoses and perineal stenoses were dealt within the catheterization lab by Dr. Connolly. We also note other problems including coronary artery disease with recent angioplasty and stent of old bypass grafts End-stage renal disease, on dialysis and diabetes mellitus. FINDINGS AND TECHNIQUE: After general anesthesia was established, an incision was made in the right groin to expose the common, deep and superficial femoral arteries. The patient had severe edema and once the skin incision was made, there was exuberant extra cellular fluid. ____ there was severe common femoral artery occlusive disease. We needed to expose quite high in the femoral artery up into the external iliac system to obtain proximal control. When the proximal, common femoral, deep femoral and superficial femoral arteries were sufficiently controlled, then, 10,000 units of heparin were given. The arteriotomy was made. The endarterectomy was performed. The endarterectomy extended into the profunda and superficial femoral arteries. Tacking sutures were placed at the transition zone. When the arteriotomy was felt to be satisfactory, the arteriotomy was closed with a patch graft of thin pericardium. Flow was then established. [facility] [address] [place] [address] OPERATIVE REPORT Name: HANNAH MCGARRY JR Room #: 247-P [facility] IN M.R.#: [id number] Admission: 05/07/18 Attend Phys: Nash Paula MD Discharge: Date of : 47 Report #: [id number] The patient was on multiple blood thinners including Plavix, and there was coagulopathic bleeding. Multiple sutures were placed to help control the bleeding spots and protamine, plasma, and platelets were given. When hemostasis was satisfactory, drain was brought through the bottom through a separate stab wound I should say and then the wound was closed in layers. A Prevena dressing was applied, and the patient was taken to the intensive care unit having tolerated the procedure reasonably well, considering his chronic and acutely ill status. All counts were reported as correct. <ELECTRONICALLY SIGNED> By: Tin Meza MD 05/12/18 1649 1548 1630 Tin Meza MD /nt
--- NOTE | 2018-05-12 19:57 | NUR ---
CPAP TRIAL THIS AFTERNOON. ABG'S CALLED TO DR NICHOLSON AND RECIEVED ORDER TO EXTUBATE. EXTUBATED AT 1535. H&H RESULTS CALLED TO DR NICHOLSON. ORDER FOR 2 UNITS PRBC'S. FIRST UNIT STARTED. NSR WITH FREQUENT PVC'S TODAY. TITRATING LEVOPHED TO KEEP MAP >60. PREVANA VAC TO RIGHT GROIN LEAKING THIS AM. REINFORCED WITH TRANSPARENT DRESSING AND SEAL ACHIEVED. PT'S AND DAUGHTERS AT BEDSIDE AND UPDATED THROUGHOUT THE DAY TODAY.
[2018-05-12 20:35] VITALS: BP 113/37; BP 115/41; BP 120/43
[2018-05-13 01:06] LABS: METAPNEUMOVIRUS Negative (Negative)
[2018-05-13 01:06] LABS: HEPATITIS B SURFACE AG Negative (Negative)
[2018-05-13 05:55] LABS: HEMATOCRIT 27.9 % (42.0-52.0)
[2018-05-13 06:05] LABS: HEMOGLOBIN 9.5 gm/dL (14.0-18.0)
--- NOTE | 2018-05-13 06:18 | NUR ---
PT AOX1, CONFUSED AND DROWSY AT TIMES. FOLLOWS COMMANDS. DENIES PAIN. AFEBRILE DURING THE NIGHT. ON 3L NC, SATS ABOVE 90%, NO SIGNS OF RESP DISTRESS NOTED WHILE IN BED. LEVOPHED WEANED OFF AT APPROXIMATELY 2300 DURING THE NIGHT, BP STABLE WITH MAP > 60. BLOOD GIVEN DURING THE NIGHT, HGB STABLE THIS AM. URINE OUTPUT NOTED. FREQUENT TURNS DURING THE NIGHT. WOUND CARE PERFORMED ON SACRAL WOUND. PREVANA DRESSING REINFORCED ON R GROIN. LATISHA DRAIN OUT NOTED. NO COMPLAINS CURRENTLY. FALL PRECAUTIONS IN PLACE, WILL CONTINUE TO MONITOR.
[2018-05-13 09:46] LABS: HEMATOCRIT 27.9 % (42.0-52.0); HEMOGLOBIN 9.5 gm/dL (14.0-18.0); MCH 29.7 pg (26.0-34.0); MCHC 34.1 g/dL (28.0-37.0); MCV 87.1 fL (80.0-100.0); RBC 3.2 mil/uL (4.50-6.00); RDW 18.3 % (10.5-14.5); WBC 7.8 thou/uL (4.0-11.0)
[2018-05-13 09:55] LABS: ALBUMIN 1.7 g/dL (3.4-5.0); CALCIUM 7.4 mg/dL (8.5-10.1); CREATININE 2.9 mg/dL (0.7-1.3); PHOSPHORUS 3.6 mg/dL (2.5-4.9); POTASSIUM 3.7 mmol/L (3.5-5.1)
--- NOTE | 2018-05-13 12:24 | NUR ---
WOUND FOLLOW UP: PT. WAS SEEN TODAY BY DR. RYAN AND MYSELF. DR. RYAN REMOVED THE SUTURES TO THE LEFT BKA SITE. ALL OTHER WOUNDS ARE STABLE AT THIS TIME. RECOMMENDATIONS: CONTINUE WITH CURRENT PLAN OF CARE. PT. AND STAFF NURSE WERE INSTRUCTED ON PLAN OF CARE.
--- NOTE | 2018-05-13 15:07 | PATH ---
[facility] [address] [place] [address] PATHOLOGY RPT PROCEDURE Name: HANNAH MCGARRY JR Room #: 247-P [facility] IN M.R.#: [id number] Admission: 05/07/18 Date of : 47 Discharge: Report #: [id number] Path Case #: [id number] [facility] Accession Number: [id number] . 01 Material submitted: . RIGHT FEMORAL PLAQUE . 01 Clinical history: . Arterial occlusive disease, PVD, right femoral artery . 02 Diagnosis: Right femoral artery plaque, femoral endarterectomy: - Consistent with a calcific atherosclerotic plaque. (IUV:grocery clerk; 05/13/2018) MBR/05/13/2018 . 02 Electronically signed: . Brielle Martin MD, Pathologist NPI- [id number] . 01 Gross description: . Received in formalin labeled "Hannah Mcgarry Jr, right femoral plaque," is a roughly tubular segment of granular, yellow-cruz tissue measuring 4.7 x 1.0 x 0.9 cm in greatest dimensions. Sectioning reveals partially calcified cut surfaces. Also received within the specimen container is a 3.2 x 1.2 x 0.3 cm aggregate of cruz-brown, rubbery tissue. The specimen is submitted representatively in cassette A1, following decalcification. (DAC; 05/12/2018) XDC/XDC . 02 Pathologist provided ICD-10: I70.201 . 02 CPT . 169323, [id number] Specimen Comment: A courtesy copy of this report has been sent to Specimen Comment: [phone], . Specimen Comment: Report sent to and Performed at: [address], [place] [id number] MD Markel Castellano MD Phone: [phone] Performed at: [address] [id number] MD Brielle Martin MD Phone: [phone]
[2018-05-13 17:31] VITALS: BP 112/60
--- NOTE | 2018-05-13 17:53 | NUR ---
ASSESSMENTS DOCUMENTED. PT HAD DIALYSIS THIS AM, 2.5 L OFF. TOLERATED WELL. VSS. ORDERS TO D/C ART LINE. LATISHA DRAIN REMOVED PER CTS. WOUND DRESSINGS CHANGED, PICTURES TAKEN - PLACED IN CHART. PT ALERT AND ORIENTED, DROWSY THROUGH OUT THE DAY, BUT EASILY AWAKENED. DENIES ANY PAIN OR DISCOMFORT. WEEPING FROM BILATERAL UPPER AND LOWER EXTREMITIES. DRESSING REMOVED FROM LEFT GROING SITE, OPEN TO AIR. ORDERS TO TRANSFER TO [facility]. SPEACH EVAL DONE POST EXTUBATION. WILL REMAIN NPO, OKAY TO TAKE MEDS IN APPLESAUCE. SPEECH TO RE-EVAL IN AM.
[2018-05-13 20:51] VITALS: BP 122/65
--- NOTE | 2018-05-13 20:57 | NUR ---
NOTIFIED MS.DEBBIE MCGARRY REGARDING OF TX PT TO ROOM 218.
[2018-05-13 23:40] VITALS: BP 133/66
[2018-05-14 05:44] LABS: HEMATOCRIT 29.8 % (42.0-52.0); HEMOGLOBIN 9.9 gm/dL (14.0-18.0)
[2018-05-14 06:16] VITALS: BP 118/50
--- NOTE | 2018-05-14 07:58 | NUR ---
RECEIVED PT. CIARAN 2100; NO C/O PAIN; ALERT TO PERSON AND SITUATION; DRESSING CHANGE PERFORM OVER BUTTOCKS AREA; ABLE TO REST MOST OF THE NIGHT; REMAIN NPO; ASSESSMENT CHARDED; FOLLOWING POC.
[2018-05-14 12:00] VITALS: BP 134/50
--- NOTE | 2018-05-14 13:43 | CATHLAB ---
[facility] [employer] [place] [address] INVASIVE PROCEDURE REPORT Name: HANNAH MCGARRY JR Room #: 218-P ADM IN .R.#: [id number] Admission: 05/07/18 Attend Phys: Nash Paula, Discharge: Date of : 47 Date of Service: 05/14/18 1343 Report #: [id number] THIS REPORT FOR: //name// APPROVED REPORT Study performed: 05/08/2018 16:33:15 Patient Details Patient Status: In-Patient Room #: 244 The patient is a 72 year-old male Event Personnel Thaddeus Liang 411 Directory Assistance Operator, Yony Godoy RN RN, Josiane Angulo RTR, ACCOUNTING MACHINE OPERATOR Monitor, Jillian Hernández RN RN, Pooja Payne Scrjose raul Procedures Performed Art Access - L femoral artery* Bay Access - L femoral vein Right and Left Heart Cath Lt Vent/Cors/Grafts [id number] RLLVCORCAB GUILLAUME Revasc Graft Single OM C9604 SVGREVSING 89340 Initial Mod Sed Same Phys/QHP Gr5y 052840 08574 Mod Sed Same Phys/QHP Ea 642805 Hemostasis with Manual pressure Hemostasis w/ Mynx Indication Chest pain Procedure Narrative A BRITE TIP 7FR X 23CM Sheath sheath was inserted into the LFA^. Coronary angiography was performed using coronary diagnostic catheters. The right coronary system was accessed and visualized with a JR4 catheter. The left coronary system was accessed and visualized with a JL4 catheter. The left ventricle was accessed and visualized with a PIGTAIL catheter. Left ventriculogram was performed in 30 degree projection. Closure device was deployed with a 7 Fr MYNXGRIP 6/7F #[id number]. Hemostasis was obtained with manual pressure following sheath removal without any complications. The patient tolerated the procedure well and there were no complications associated with the procedure. There was no hematoma. Intraoperative Conscious Sedation Sedation start time: 14:17 Case end Time: 18:14 Fentanyl 50 mcg Versed 1.2 mg Total conscious sedation times, fluoro, dose and contrast are the total times for both the runoff and heart cath [address] [address] INVASIVE PROCEDURE REPORT Name: HANNAH MCGARRY Room #: 218-P [facility] IN .R.#: [id number] Admission: 05/07/18 Attend Phys: Nash Paula, Discharge: Date of : 47 Date of Service: 05/14/18 1343 Report #: [id number] procedures. Fluoro Time: 35.50 minutes Dose: DAP 48787.97 cGycm2 2227 mGy Contrast Type and Amount: Visipaque 212 ml Hemodynamics The right atrial mean pressure is 15 mmHg. The right ventricular pressure is 51/6 mmHg. The pulmonary artery pressure is 56/36 mmHg with a mean of 39 mmHg. The mean pulmonary capillary wedge pressure is 30 mmHg. The aortic pressure is 134/67 mmHg with a mean of 93 mmHg. The left ventricular pressure is 130/15 mmHg with a mean of mmHg. The left ventricular end diastolic pressure is 38 mmHg. The cardiac output using thermo method is 3.90 L/min. The cardiac index using thermo method is 2.04 L/min/m2. PCI Technique Lesion Percutaneous coronary intervention was performed on the SVG to OM. A LAUNCHER 6FR LCB #[id number] Guide Catheter was used to engage the ostium. A Luge Wire .014 x 182CM #[id number] Interventional Guidewire was used to cross the lesion. STENT DEPLOYMENT A drug-eluting stent RESOLUTE ANGELITA OTW 3.5 X 12 #[id number] was inserted and inflated up to 18atm for 22seconds. POST STENT DEPLOYMENT BALLOON DILATION A Balloon catheter TREK NC RX 4.0 X 8 #[id number] was inserted and inflated up to 18atm for 32seconds. Conclusion #1 successful PTCA stent with a 3.5 x 12 Kite to a proximal SVG to OM 90% stenosis to 0%. This stent was postdilated to 4.2 mm. #2 total occlusion of the left system natively. #3 PEREZ to LAD is widely patent with mildly diseased LAD and retrograde filling diagonal system and extensive septal system #4 [place] right occluded #5 vein graft to a PDA is mildly ectatic and calcified with only mild irregularities filling and extensive PDA OZ system. #6 mildly dilated left ventricle with ejection fraction the 30% range. Inferior base is akinetic moderately hypokinetic anterior anterior base and lateral wall. #7 successful right heart catheterization with significant elevation pulmonary pressures see above hemodynamics IV Lasix administered in the catheter lab [facility] [address] [place] [address] INVASIVE PROCEDURE REPORT Name: HANNAH MCGARRY JR Room #: 218-P ADM IN M.R.#: [id number] Admission: 05/07/18 Attend Phys: Nash Paula, Discharge: Date of : 47 Date of Service: 05/14/18 1343 Report #: [id number] Recommendations and plan. Patient to the ICU in stable but guarded condition. Aggressive diuresis. No further indication for coronary intervention. Hope for some recruitment in LV function with the intervention to the vein graft. Patient is predominantly diuresis via dialysis. Making little urine dialysis to be undertaken. Dual antiplatelet therapy will need to be continued this is a drug-eluting stent. <ELECTRONICALLY SIGNED> By: Thaddeus Liang MD, FACC 05/14/18 1343 1343 42 Thaddeus Liang MD, FACC /INF
[2018-05-14 16:00] VITALS: BP 144/59
[2018-05-14 19:43] VITALS: BP 147/58
[2018-05-15 00:07] VITALS: BP 139/57
[2018-05-15 03:51] VITALS: BP 128/45
--- NOTE | 2018-05-15 05:44 | NUR ---
ASSUME CARE 1900. PT/VITALS STBALE. PT DROWSY BUT EASILY AROUSABLE. POOR TOLERANCE TO ACTIVITY. GENERALIZED PAIN ESPECIALLY IN LOWER EXTREMITIES. ASSESSMENT CHARTED. PROGRESSING SLOWLY WITH POC. PLAN IS TO CONTINUE WOUND MANAGEMENT, Q2 TURNS, REDO SWALLOW EVAL, AND MONITOR OVERALL RECOVERY. WILL CONTINUE TO MONITOR AND FOLLOW WITH POC
[2018-05-15 08:00] VITALS: BP 132/47
--- NOTE | 2018-05-15 09:00 | HC ---
[facility] [address] [place] [address] CONSULTATION Name: HANNAH MCGARRY JR Room #: 218-P [facility] IN M.R.#: [id number] Admission: 05/07/18 Attend Phys: Nash Paula MD Discharge: Date of : 47 Report #: [id number] THIS REPORT FOR: //name// CC: FAM unknown Nash Paula REASON FOR CONSULTATION: End-stage renal disease. HISTORY OF PRESENT ILLNESS: A 72-year-old with past medical history of end-stage renal disease, maintained on hemodialysis at the [facility]. He is status post CABG back in 1999. Known failed kidney transplant. He has peripheral vascular disease, status post left BKA in the [facility], complicated by AFib, C. diff. He dialyzes every Friday, Friday and Friday. He was brought to the Emergency Room yesterday after the staff notes that the patient was lethargic. He was also febrile. Temperature was up and when he presented to the Emergency Room, he was found to have pulmonary edema with a troponin of 5. He was admitted to the Intensive Care Unit after being found to be hypotensive. Cardiology was consulted. Troponin peaked at 10.3. I am being consulted to manage his end-stage renal disease. PAST MEDICAL HISTORY: 1. End-stage renal disease. 2. Coronary artery disease. 3. Failed kidney transplant. 4. Peripheral vascular disease. 5. C. diff. 6. AFib. 7. Diabetes mellitus. 8. Failed kidney transplant. 9. Chronic immune suppression status. 10. Gout. 11. Left BKA. 12. Post-CABG. 13. Gout. SOCIAL HISTORY: He resides in the [facility]. No drug or alcohol abuse. MEDICATIONS: 1. Insulin. 2. Aspirin. 3. Plavix. 4. Mirtazapine. 5. Prednisone. 6. Trazodone. 7. Tacrolimus.. 8. Pravastatin. [facility] [address] [place] [address] CONSULTATION Name: HANNAH MCGARRY Room #: 218-P [facility] IN ..#: [id number] Admission: 05/07/18 Attend Phys: Nash Paula MD Discharge: Date of : 47 Report #: [id number] FAMILY HISTORY: Strong family history of diabetes mellitus and hypertension. ALLERGIES: CODEINE, SIMVASTATIN, GABAPENTIN, ATORVASTATIN. PHYSICAL EXAMINATION: GENERAL: He is on 5 mcg of Levophed. VITAL SIGNS: Pulse rate is 96, temperature 36.5, blood pressure 120/65. HEAD AND NECK: No jugular venous distention. Right IJ tunneled catheter present. CHEST: Bilateral crackles present. CARDIOVASCULAR: No rub detected. ABDOMEN: Soft, nontender. LOWER EXTREMITIES: Status post left below knee amputation. SKIN: There is ulcer on the right big toe. There is also an ulcer at the tip of the index finger with a left-sided immature brachiocephalic AV fistula. His left upper extremity is swollen. REVIEW OF SYSTEMS: GENERAL: Significant for fever and lethargic. CARDIOVASCULAR: No chest pain, but significant for palpitation. PULMONARY: Shortness of breath. GASTROINTESTINAL: No nausea or vomiting. MUSCULOSKELETAL AND SKIN: As described above. LABORATORY VALUES: Reviewed. Hemoglobin 8.4, white blood cell count 7.5. Chemistry from today revealed a sodium of 139, potassium of 3.7, BUN of 17, creatinine of 2.5. Tacrolimus level is pending. UA with +3 protein, red blood cells and white blood cells. Bacteria present. All cultures are pending. Chest x-ray reviewed, consistent with pulmonary edema. ASSESSMENT, IMPRESSION AND PLAN: 1. End-stage renal disease. 2. Sepsis syndrome. 3. Pulmonary edema. 4. Failed kidney transplant. 5. Anemia. 6. Diabetes mellitus. 7. Peripheral vascular disease. 8. Acute non-ST elevation myocardial infarction. 9. We will arrange for the patient to have his dialysis today. Maintained on pressor for now. Antibiotics being adjusted according to his culture by the ID team. Cardiology on board and plan is to proceed with [place] [address] CONSULTATION Name: HANNAH MCGARRY JR Room #: 218-P [facility] IN M.R.#: [id number] Admission: 05/07/18 Attend Phys: Nash Paula MD Discharge: Date of : 47 Report #: [id number] Maintained on chronic suppression medications including prednisone and minimal dose tacrolimus. We will continue to evaluate his volume status and electrolytes and decide about further treatment including an extra dialysis treatment in the morning if needed. <ELECTRONICALLY SIGNED> By: Alisson Wade MD 05/15/18899 0939 1155 Alisson Wade MD /nt
[2018-05-15 12:13] VITALS: BP 143/35
--- NOTE | 2018-05-15 15:38 | NUR ---
ASSESSMENTS COMPLETED AND DOCUMENTED. NO S/SX OF CARDIAC OR RESP DISTRESS. PT HAD VIDEO SWALLOW STUDY THIS AM. CURRENTLY GETTING DIALYSIS. NO COMPLAINTS VOICED. WILL CONTINUE TO MONTIOR PER ORDERS.
--- NOTE | 2018-05-15 15:43 | NUR ---
Case discussed with the care team. LTAC level of care recommended before returning to SNF. Pt getting dialysis today and had video swallow eval as well. Now with recommendations for mod diet and nectar liquids. LTAC options and benefits discussed with the pt and his at bedside. Both are in agreement and would like to consider [facility] due to location closest to home. [facility] liason here to eval and visit with them. [facility] can accept this weekend and will have a bed available if pt is medically stable for transfer. [facility] transfer form is on the chart for non emergent ambulance transport. The oncall liason for [facility] is Jimena at [phone] and she is to be contacted to confirm dc and make additional arrangments for a weekend dc. Chart copy will need to be updated.
--- NOTE | 2018-05-15 15:57 | NUR ---
WOUND FOLLOW UP: PT. WAS SEEN TODAY BY DR. EUCEDA AND MYSELF. PT. WOUNDS ARE STABLE AT THIS TIME. RECOMMENDATIONS: CONITNUE WITH CURRENT PLAN OF CARE. PT. AND STAFF NURSE WERE INSTRUCTED ON PLAN OF CARE.
[2018-05-15 19:27] VITALS: BP 124/44
--- NOTE | 2018-05-16 01:56 | NUR ---
2000 - PT LAYING IN BED IN NAD. DENIES NEEDS AND STAES NO COMPLAINTS. PUNCTURE WOUND SITE ON RIGHT UPPER THIGH CONTINUES TO OOZE. DRESSING CHANGED. WOUND VAC FUNCTIONING UNOBJECTIONABLY.
[2018-05-16 05:05] VITALS: BP 143/49
[2018-05-16 07:32] VITALS: BP 121/30
[2018-05-16 12:10] VITALS: BP 126/39
[2018-05-16] MEDS ORDERED: AUGMENTIN 500-1 EACH PO (13:10)
[2018-05-16] MEDS ORDERED: FIRVANQ50 MG/1 ML PO (13:11)
--- NOTE | 2018-05-16 16:13 | NUR ---
ASSUMED CARE OF PT AT SHIFT CHANGE. ASSESSMENTS CHARTED. MEDS GIVEN PER JUN. PT ALERT AND ORIENTED TO PERSON, PLACE, FORGETFUL AT TIMES. PT C/O PAIN, MANAGED WITH IV PAIN MEDS. O2 SATS WNL ON 2L O2. NO S/SX OF CARDIAC OR RESP DISTRESS NOTED. PT SR ON MONITOR. DENIES CHEST PAIN. DC ORDERS RECEIVED, ACKNOWLEDGE AND IMPLEMENTED. REPORT CALLED TO NURSE RAMOS AT [facility]. PT DC'D AT APPROX 1600 PER EMS WITH DISCHARGE PAPERWORK. FAMILY AWARE AND TO MEET PT AT FACILITY WITH BELONGINGS.
== END 2018-05-16 16:00 | DRG 853 ==
LOC: ER 11:10 → EROBS 12:30 → ICU 12:30 → 2N 05-09 14:29 → TBA 05-11 13:35 → ICU 05-11 16:10 → 2N 05-13 20:49
PROVIDERS: Emergency Medicine; Hospitalist; Specialist; Surgery Vascular Surgery; ADMIT Internal Medicine
PROC: 02HV33Z Insertion of Infusion Device into Superior Vena Cava, Percutaneous Approach (ICD-10-PCS; principal; 2018-05-07)
PROC: B5181ZA Fluoroscopy of Superior Vena Cava using Low Osmolar Contrast, Guidance (ICD-10-PCS; principal; 2018-05-07)
PROC: B548ZZA Ultrasonography of Superior Vena Cava, Guidance (ICD-10-PCS; principal; 2018-05-07)
PROC: 047T3DZ Dilation of Right Peroneal Artery with Intraluminal Device, Percutaneous Approach (ICD-10-PCS; 2018-05-08)
PROC: B215YZZ Fluoroscopy of Left Heart using Other Contrast (ICD-10-PCS; 2018-05-08)
PROC: 047C3DZ Dilation of Right Common Iliac Artery with Intraluminal Device, Percutaneous Approach (ICD-10-PCS; 2018-05-08)
PROC: B211YZZ Fluoroscopy of Multiple Coronary Arteries using Other Contrast (ICD-10-PCS; 2018-05-08)
PROC: 4A023N8 Measurement of Cardiac Sampling and Pressure, Bilateral, Percutaneous Approach (ICD-10-PCS; 2018-05-08)
PROC: 04CT3ZZ Extirpation of Matter from Right Peroneal Artery, Percutaneous Approach (ICD-10-PCS; 2018-05-08)
PROC: 5A1D70Z Performance of Urinary Filtration, Intermittent, Less than 6 Hours Per Day (ICD-10-PCS; 2018-05-08)
PROC: 047D3DZ Dilation of Left Common Iliac Artery with Intraluminal Device, Percutaneous Approach (ICD-10-PCS; 2018-05-08)
PROC: 027034Z Dilation of Coronary Artery, One Artery with Drug-eluting Intraluminal Device, Percutaneous Approach (ICD-10-PCS; 2018-05-08)
PROC: B4181ZZ Fluoroscopy of Bilateral Renal Arteries using Low Osmolar Contrast (ICD-10-PCS; 2018-05-08)
PROC: B41D1ZZ Fluoroscopy of Aorta and Bilateral Lower Extremity Arteries using Low Osmolar Contrast (ICD-10-PCS; 2018-05-08)
PROC: 30233L1 Transfusion of Nonautologous Fresh Plasma into Peripheral Vein, Percutaneous Approach (ICD-10-PCS; 2018-05-11)
PROC: 30233R1 Transfusion of Nonautologous Platelets into Peripheral Vein, Percutaneous Approach (ICD-10-PCS; 2018-05-11)
PROC: 04UK0KZ Supplement Right Femoral Artery with Nonautologous Tissue Substitute, Open Approach (ICD-10-PCS; 2018-05-11)
PROC: 04CK0ZZ Extirpation of Matter from Right Femoral Artery, Open Approach (ICD-10-PCS; 2018-05-11)
PROC: 30233N1 Transfusion of Nonautologous Red Blood Cells into Peripheral Vein, Percutaneous Approach (ICD-10-PCS; 2018-05-11)
PROC: 30233K1 Transfusion of Nonautologous Frozen Plasma into Peripheral Vein, Percutaneous Approach (ICD-10-PCS; 2018-05-11)
PROC: 5A1D70Z Performance of Urinary Filtration, Intermittent, Less than 6 Hours Per Day (ICD-10-PCS; 2018-05-11)
PROC: 5A1D70Z Performance of Urinary Filtration, Intermittent, Less than 6 Hours Per Day (ICD-10-PCS; 2018-05-13)
PROC: 5A1D70Z Performance of Urinary Filtration, Intermittent, Less than 6 Hours Per Day (ICD-10-PCS; 2018-05-14)
PROC: 5A1D70Z Performance of Urinary Filtration, Intermittent, Less than 6 Hours Per Day (ICD-10-PCS; 2018-05-15)
DX: A41.9 Sepsis, unspecified organism (principal); L89.153 Pressure ulcer of sacral region, stage 3; I21.4 Non-ST elevation (NSTEMI) myocardial infarction; N18.6 End stage renal disease; J18.9 Pneumonia, unspecified organism; R65.21 Severe sepsis with septic shock; N39.0 Urinary tract infection, site not specified; T86.12 Kidney transplant failure; E11.52 Type 2 diabetes mellitus with diabetic peripheral angiopathy with gangrene; G93.40 Encephalopathy, unspecified; I13.2 Hypertensive heart and chronic kidney disease with heart failure and with stage 5 chronic kidney disease, or end stage renal disease; R65.20 Severe sepsis without septic shock; I48.91 Unspecified atrial fibrillation; I50.9 Heart failure, unspecified; E87.6 Hypokalemia; E83.42 Hypomagnesemia; I95.9 Hypotension, unspecified; M10.9 Gout, unspecified; F32.9 Major depressive disorder, single episode, unspecified; E78.5 Hyperlipidemia, unspecified; D63.8 Anemia in other chronic diseases classified elsewhere; E11.22 Type 2 diabetes mellitus with diabetic chronic kidney disease; I70.201 Unspecified atherosclerosis of native arteries of extremities, right leg; R13.10 Dysphagia, unspecified; Z88.6 Allergy status to analgesic agent; Z88.8 Allergy status to other drugs, medicaments and biological substances; Z95.1 Presence of aortocoronary bypass graft; Z89.519 Acquired absence of unspecified leg below knee
CPT/HCPCS: 10078; 10081; 32100; 47382; 48888; 50011; 50101; 50331; 50386; 50953; 51481; 51751; 52279; 52287; 53358; 54118; 56524; 56526; 56528; 56534; 56639; 56668; 56760; 57092; 57093; 62110; 62900; 65020; 65040; 83006

== ENCOUNTER 2018-06-19 19:46 | Emergency (ER) | payer OTHER ==
[~2018-06-19] VITALS: Ht 180.3 cm; Wt 51.7 kg
[~2018-06-19 19:46] MED LIST: ALLOPURINOL 10100 M1 PO; ASPIRIN81 M2 PO; AUGMENTIN 500-1 EACH PO; BETADINE30 ML TOP; CILOSTAZOL 100100 M1 PO; EPOGEN10000 UNIT SUBQ; FIRVANQ50 MG/1 ML PO; FLAGYL500 M1 PO; FOLIC ACID 1 MG1 MG PO; HEPARIN 1,1000 UNIT/ SUBQ; LIDOCAINE PAIN1 EACH TOP; LISINOPRIL5 MG PO; LYRICA 50 MG50 MG PO; MELATONIN3 MG PO; NOVOLOG100 UNIT/1 SUBQ; OXYCODONE HCL 55 MG PO; PLAVIX 75 MG TA75 M1 PO; PRAVACHOL40 MG PO; PREDNISONE 5 MG5 M1 PO; REMERON15 MG PO; RENAL CAPS SOFTG1 MG PO; SENNA-DOCUSATE1 EAC1 PO; SODIUM BICARBO650 M3 PO; SSD CREAM 1% 5050 GM TOP; TACROLIMUS0.5 MG PO; TRAZODONE HCL100 MG PO; TYLENOL325 MG PO; ZANTAC 150MG T150 M1 PO
[2018-06-19 20:26] LABS: ABSOLUTE NEUTROPHILS 13.3 thou/uL (1.4-8.2); BASOPHILS 0.3 % (0.0-2.0); EOSINOPHILS 0.3 % (0.0-3.0); HEMATOCRIT 33.3 % (42.0-52.0); HEMOGLOBIN 10.7 gm/dL (14.0-18.0); MCH 27.9 pg (26.0-34.0); MCV 87.1 fL (80.0-100.0); MONOCYTES 5.2 % (1.0-8.0); PLATELET COUNT 342 thou/uL (150-400); POLYS 92.2 % (36.0-66.0); RBC 3.82 mil/uL (4.50-6.00); RDW 18.5 % (10.5-14.5); WBC 14.4 thou/uL (4.0-11.0)
[2018-06-19 20:34] LABS: CALCIUM 8.5 mg/dL (8.5-10.1); CREATININE 2.3 mg/dL (0.7-1.3); POTASSIUM 3.6 mmol/L (3.5-5.1)
[2018-06-19 20:44] LABS: ALBUMIN 1.9 g/dL (3.4-5.0); MAGNESIUM 1.6 mg/dL (1.8-2.4); TOTAL BILIRUBIN 0.6 mg/dL (<0.1-1.0); TOTAL PROTEIN 7.3 g/dL (6.4-8.2); TROPONIN-I 0.36 ng/mL (<0.06)
[2018-06-19 20:54] LABS: ANISOCYTOSIS 2+
[2018-06-19 20:55] LABS: HYPOCHROMASIA 1+; LARGE PLATELETS OCCASIONAL; POLYCHROMASIA OCCASIONAL
[2018-06-20 00:30] VITALS: BP 106/31
--- NOTE | 2018-06-20 02:43 | EKG ---
[address] [place] [address] ELECTROCARDIOGRAM REPORT Name: HANNAH MCGARRY JR Room #: [facility] Fawn#: [id number] ������������������ Admission: 06/19/18 ������������������ Attend Phys: Discharge: 06/20/18 ������������������ Date of : 47 Report #: [id number] ����������������������������������������������������������������� [id number] THIS REPORT FOR: //name// [facility] ED Test Date: 2018-06-19 Test Time: 20:19:18 Pat Name: HANNAH MCGARRY Department: Room: Gender: M [employer]: [place] : 1945 Requested By: Bhavik Pina Order Number: [id number] MD: Gene Copeland Measurements Intervals [place] Rate: 103 P: 55 LA: 149 QRS: 45 QRSD: 83 T: 241 QT: 390 QTc: 511 Interpretive Statements Sinus tachycardia Multiform ventricular premature complexes left atrial enlargement Probable LVH with secondary repol abnrm Compared to ECG 05/08/2018 06:12:20 Ventricular premature complex(es) now present Electronically Signed On 06-20-2018 2:43:15 [employer] by Gene Copeland [email or web address] ��������������������������������������������� <ELECTRONICALLY SIGNED> ���������������������������������������� By: Gene Copeland MD ��������������������������������������������� 06/20/18 0243 18 18 Gene Copeland MD /JAUN
== END 2018-06-20 00:30 | disposition short-term general hospital (02) ==
LOC: ER 19:46
PROVIDERS: Emergency Medicine
DX: I12.0 Hypertensive chronic kidney disease with stage 5 chronic kidney disease or end stage renal disease (principal); E11.22 Type 2 diabetes mellitus with diabetic chronic kidney disease; N18.6 End stage renal disease; E83.42 Hypomagnesemia; J18.8 Other pneumonia, unspecified organism; I73.9 Peripheral vascular disease, unspecified; I25.2 Old myocardial infarction; M10.9 Gout, unspecified; Z88.5 Allergy status to narcotic agent; Z99.2 Dependence on renal dialysis; Z88.8 Allergy status to other drugs, medicaments and biological substances